=== PATIENT | female | born 1985 | race Caucasian/White ===

== ENCOUNTER 2016-09-09 07:00 | Inpatient (IN) | payer MEDICAID, OTHER ==
[~2016-09-09] VITALS: Ht 160 cm; Wt 96.2 kg
[2016-09-09] VITALS (15 sets, daily range): BP systolic 96–145; RESP 14–20; TEMP 97.3–98.2; Ht 160 cm; Wt 96.2 kg
[2016-09-09] MEDS ORDERED: CEFAZOLIN (LD/OB) 100 ML IV PRN (07:10)
[2016-09-09] MEDS ORDERED: FAMOTIDINE 20 MG INJ IV ONE (07:10)
[2016-09-09] MEDS ORDERED: METOCLOPRAMIDE 10 MG/2 ML VIAL IV PUSH ONE (07:10)
[2016-09-09] MEDS ORDERED: LACT RINGERS 1,000 ML IV SCH (07:10)
[2016-09-09] MEDS ORDERED: ONDANSETRON 4 MG VIAL IV PRN ×3 (09:05→10:05)
[2016-09-09] MEDS ORDERED: MEPERIDINE 25 MG/ML IV PRN (09:05)
[2016-09-09] MEDS ORDERED: MORPHINE 4 MG/ML SYR IV PRN (09:05)
[2016-09-09] MEDS ORDERED: NALOXONE 0.4 MG/ML AMP IV PRN (09:05)
[2016-09-09] MEDS ORDERED: DILAUDID 1 MG/ML AMP IV PRN (09:05)
[2016-09-09] MEDS ORDERED: SALINE FLUSH 10 ML FLUSH PRN (09:05)
[2016-09-09] MEDS ORDERED: DIPHENHYDRAMINE 50 MG/ML VIAL IV PRN (09:05)
[2016-09-09] MEDS ORDERED: BUTORPHANOL 2 MG/ML VIAL IV PRN (09:05)
[2016-09-09] MEDS ORDERED: MORPHINE 2 MG/ML SYR IV PRN ×2 (09:05)
[2016-09-09] MEDS ORDERED: OXYCODONE 5 MG TAB PO PRN (09:05)
[2016-09-09] MEDS ORDERED: PROMETHAZINE 25 MG/ML VIAL IV PRN (09:05)
[2016-09-09] MEDS ORDERED: TDaP 0.5 ML VIAL IM.VACC ONE (10:05)
[2016-09-09] MEDS ORDERED: MEASLES,MUMPS,RUBELLA VAC SUBQ.VACC ONE (10:05)
[2016-09-09] MEDS: MORPHINE 4 MG/ML SYR IV PRN ×2 (10:13→10:35)
[2016-09-09] MEDS: OXYTOCIN 15 UNITS/250 ML NS 250 ML IV SCH ×3 (10:28→21:23)
[2016-09-09] MEDS: LACT RINGERS 1,000 ML IV SCH ×2 (10:29→21:23)
[2016-09-09] MEDS ORDERED: MIDAZOLAM 2 MG/2 ML INJ IV ONE (10:46)
[2016-09-09] MEDS ORDERED: MORPHINE PF 0.5 MG/ML 10 ML IV ONE (10:46)
[2016-09-09] MEDS: KETOROLAC 30 MG/ML VIAL IV SCH ×2 (12:11→17:51)
[2016-09-09] MEDS: METHYLERGONOVINE 0.2 MG TAB PO SCH ×2 (12:50→17:59)
[2016-09-09] MEDS: SALINE FLUSH 10 ML FLUSH SCH (20:00)
[2016-09-10] MEDS: METHYLERGONOVINE 0.2 MG TAB PO SCH ×2 (00:13→05:34)
[2016-09-10] MEDS: KETOROLAC 30 MG/ML VIAL IV SCH ×2 (00:13→05:34)
[2016-09-10 02:28] VITALS: BP_SYST 119; RESP 16; TEMP 98.5
[2016-09-10] MEDS: OXYTOCIN 15 UNITS/250 ML NS 250 ML IV SCH (02:54)
[2016-09-10 05:42] VITALS: BP_SYST 113; RESP 18; TEMP 97.9
[2016-09-10] MEDS ORDERED: SODIUM CHLORIDE 0.9% FLUSH BAG 500 ML IV SCH (06:00)
[2016-09-10] MEDS: SALINE FLUSH 10 ML FLUSH SCH ×2 (07:55→20:00)
[2016-09-10] MEDS: LACT RINGERS 1,000 ML IV SCH (07:55)
[2016-09-10 09:14] VITALS: BP_SYST 108; TEMP 98
[2016-09-10 09:15] VITALS: RESP 16
[2016-09-10] MEDS: Ibuprofen 600 MG TAB PO SCH ×3 (11:29→23:52)
[2016-09-10] MEDS: MAG HYDROX 30 ML UDC PO SCH ×2 (16:00→23:55)
[2016-09-10 17:25] VITALS: BP_SYST 131; TEMP 98.3
[2016-09-10 17:26] VITALS: RESP 24
[2016-09-11] MEDS: Ibuprofen 600 MG TAB PO SCH ×2 (05:28→11:46)
[2016-09-11 05:49] VITALS: BP_SYST 125; RESP 20; TEMP 97.7
[2016-09-11] MEDS: MAG HYDROX 30 ML UDC PO SCH (08:32)
[2016-09-11 09:34] VITALS: BP_SYST 117; TEMP 98.5
[2016-09-11 09:35] VITALS: RESP 24
[2016-09-11 12:35] VITALS: BP_SYST 117; RESP 24; TEMP 98.5
== END 2016-09-11 13:41 | disposition home or self-care (01) | DRG 766 ==
LOC: LD 07:00 → OB 12:26
PROVIDERS: ADMIT Obstetrics & Gynecology Reproductive Endocrinology; ATTEND Obstetrics & Gynecology Reproductive Endocrinology
PROC: 10D00Z1 Extraction of Products of Conception, Low, Open Approach (ICD-10-PCS; principal; 2016-09-09)
PROC: 0UT70ZZ Resection of Bilateral Fallopian Tubes, Open Approach (ICD-10-PCS; 2016-09-09)
DX: O34.219 Maternal care for unspecified type scar from previous cesarean delivery (principal); Z37.0 Single live birth; Z3A.39 39 weeks gestation of pregnancy
CPT/HCPCS: 82803; 85025; 86850; 86900; 86901; 88302